=== PATIENT | female | born 1965 | race Caucasian/White ===

== ENCOUNTER 2016-12-03 06:39 | Day surgery (SDC) | payer OTHER ==
[~2016-12-03] VITALS: Ht 162.6 cm; Wt 91.6 kg
[~2016-12-03 06:39] MED LIST: FOR CHOLESTEROL; LISI20TA11 PO; METF500T PO
[2016-12-03 07:46] VITALS: Ht 162.6 cm; Wt 91.6 kg
[2016-12-03] MEDS ORDERED: GEMF600T60 PO (07:59)
[2016-12-03] MEDS ORDERED: MTF1000T PO (07:59)
[2016-12-03] MEDS ORDERED: LISI40TA9 PO (07:59)
[2016-12-03] MEDS ORDERED: ALBU18HF INHALATION (07:59)
[2016-12-03] MEDS ORDERED: GLIM2TAB PO (07:59)
[2016-12-03 09:10] VITALS: BP 143/73; PULSE 69; RESP 18
[2016-12-03] MEDS ORDERED: PROPOFOL 40 ML ONE (09:33)
--- NOTE | 2016-12-03 09:48 | GILP ---
DATE OF PROCEDURE: 12/03/2016 PROCEDURE: Colonoscopy. INDICATION: The patient is a 51-year-old female undergoing this procedure for constipation, rectal bleeding and rectal pain. INFORMED CONSENT: The risk of the procedure, related and unrelated complications, anesthetic risks, alternatives discussed, and informed consent was obtained. DESCRIPTION OF PROCEDURE: The patient was brought to the GI lab, sedated by Dr. Walker. After optimu m sedation, scope was passed with much ease into the rectum, advanced all the way into the cecum. C ecum was completely filled with stool. Appendiceal orifice was not identified. Badly could see the IC valve, base of the colon. The preparation was poor. She had melanosis coli. A small or tumor or polyp can be missed. The patient also had stool in the rectum. Hemorrhoids identified. IMPRESSION: 1. Rectal bleeding. The cause is hemorrhoids. 2. Melanosis coli. 3. Poor prep. PLAN: Sitz bath. Patient should be placed on Linzess, and this colonoscopy needs to be repeated wi thin 1 year. Dictated By: ADOLFO LAWRENCE/JUAN LUIS Conf#: [id number] DID#: [id number] CC: Ariel Sloan;*EndCC*
[2016-12-03 09:54] VITALS: BP 129/67; PULSE 62; RESP 15
== END 2016-12-03 14:00 | disposition home or self-care (01) ==
LOC: GIL 06:39
PROVIDERS: ATTEND Internal Medicine Gastroenterology
DX: K63.89 Other specified diseases of intestine (principal); K64.9 Unspecified hemorrhoids; E11.9 Type 2 diabetes mellitus without complications; I10 Essential (primary) hypertension; E78.5 Hyperlipidemia, unspecified; J45.909 Unspecified asthma, uncomplicated; E66.9 Obesity, unspecified; Z68.34 Body mass index [BMI] 34.0-34.9, adult
CPT/HCPCS: 45378; 82962; Z7610